=== PATIENT | female | born 1970 ===

== ENCOUNTER 2023-09-16 09:01 | Outpatient (CLI) | payer OTHER | END 2023-09-16 09:06 | disposition home or self-care (01) | LOC: SONOGRAMA 09:01 | PROVIDERS: ATTEND Pathology Anatomic Pathology & Clinical Pathology | DX: E04.1 Nontoxic single thyroid nodule (principal); D34 Benign neoplasm of thyroid gland ==

== ENCOUNTER 2023-11-08 16:47 | Outpatient (CLI) | payer OTHER | END 2023-11-08 16:50 | disposition home or self-care (01) | LOC: SONOGRAMA 16:47 | PROVIDERS: ATTEND Pathology Anatomic Pathology & Clinical Pathology | DX: D44.0 Neoplasm of uncertain behavior of thyroid gland (principal); E04.1 Nontoxic single thyroid nodule ==